=== PATIENT | male | born 1995 | race Caucasian/White ===

== ENCOUNTER 2022-07-09 08:14 | Emergency (ER) | payer SELFPAY ==
--- NOTE | 2022-07-09 08:24 | ED.URI ---
HPI - URI/Sore Throat General Chief Complaint: Upper Respiratory Infection Stated Complaint: Runny Nose,Congestion,Sore Throat Time Seen by Provider: 07/09/22 08:33 Source: patient and RN notes reviewed Mode of arrival: ambulatory Limitations: no limitations History of Present Illness HPI Narrative: 27-year-old male presents with concern for 1 day history of runny nose, nasal congestion, body aches, general malaise. He reports he tried multi symptom cold medicine yesterday without relief. He reports a secondhand exposure to COVID. He denies nausea, vomiting, diarrhea, shortness of breath MD elicited complaint: rhinorrhea and nasal congestion Related Data Allergies Allergy/AdvReac Type Severity Reaction Status Date / Time amoxicillin Allergy Unknown Unknown Unverified 07/09/22 08:33 Review of Systems Review of Systems: CONSTITUTIONAL: Reports malaise, chills, sweats EYES: Denies visual changes, redness, or discharge. ENT: Reports rhinorrhea, congestion, sore throat. Denies sinus pain, otalgia CARDIOVASCULAR: Denies chest pain, palpitations, or edema. RESPIRATORY: Denies cough. Denies dyspnea. GASTROINTESTINAL: Denies abdominal pain, nausea, vomiting, diarrhea SKIN: Denies rash or itching. MUSCULOSKELETAL: Reports myalgia. NEUROLOGIC: Denies headache. All systems reviewed & are unremarkable except as noted in HPI and below PMFSH Comments At time of signature, agree with nursing past medical, surgical, social and family history. There is no relevant family history pertinent to the presenting complaint Exam Narrative: GENERAL: Well-appearing, well-nourished, and in no acute distress. HEAD: Normocephalic EYES: PERRLA, conjunctivae clear ENT: Nares clear, turbinates edematous and erythematous, clear discharge. Mucous membranes moist. TM pearly lozada with dull light reflex bilaterally; no tragal tenderness. Oropharynx not erythematous without lesions. Tonsils not enlarged and without exudate, no drooling, no hoarseness, no trismus, uvula midline. NECK: Supple. No lymphadenopathy CHEST: Clear to auscultation, breath sounds equal. No wheezing, rhonchi, rales, or stridor. No respiratory distress, speaks in full sentences. HEART: Regular rate and rhythm. No murmur heard. SKIN: Warm, dry, no rash. NEURO: Alert and oriented x3. PSYCH: Normal mood and affect Course Course Emergency Course: Patient is aware of diagnosis, understands and agrees to treatment plan. Anticipatory guidance given. Patient agrees to follow-up as directed and is aware of reasons to seek care at the emergency department. Portions of this record may have been created with voice recognition software Level of Care: Express Care Visit Vital Signs Vital signs: Reviewed. MDM - URI/Sore Throat MDM Narrative Medical decision making narrative: Differential diagnosis considered: Case virus, strep pharyngitis, allergic rhinitis, upper respiratory tract infection, sinusitis, rhinosinusitis, nasopharyngitis. viral pharyngitis, otitis media, otitis externa, pneumonia, bronchitis, viral cough syndrome, viral syndrome, and influenza. Exam findings show no acute concerns or changes; patient is non-toxic appearing and is in no distress. Patient is appropriate for outpatient treatment and follow-up. Lab Data Attestation: I reviewed the patient's lab results. Critical Care Time Critical Care Time Critical Care Time: No Discharge Plan Discharge Clinical Impression: Upper respiratory infection Patient Disposition: Home, Self-Care Condition: Stable Instructions: Upper Respiratory Infection (ED) Additional Instructions: Your rapid COVID test is negative. You can consider retesting in 1-2 days. Viral illness may last between 7-21 days; antibiotics do not cure viral illness and are NOT recommended at this time. Recommend antihistamine such as Benadryl at night time and Zyrtec or Miriam during the day Also, recommend symptomatic treatment include
[2022-07-09 08:29] VITALS: BP 124/62; PULSE 74; RESP 18; TEMP 36.4; O2SAT 100
== END 2022-07-09 09:00 | disposition home or self-care (01) ==
PROVIDERS: Emergency Provider Nurse Practitioner
DX: J06.9 Acute upper respiratory infection, unspecified (principal); Z20.822 Contact with and (suspected) exposure to COVID-19
CPT/HCPCS: 87426; 99213; C9803; G0463

== ENCOUNTER 2023-04-13 20:13 | Emergency (ER) | payer OTHER, SELFPAY ==
[2023-04-13 20:25] VITALS: BP 124/68; PULSE 80; RESP 20; TEMP 36.6; O2SAT 99
--- NOTE | 2023-04-13 21:29 | ED.GENADULT ---
HPI - General Adult General Chief complaint: Dental/Oral Stated complaint: dental pain, abcess Time Seen by Provider: 04/13/23 21:10 Source: patient Mode of arrival: ambulatory Limitations: no limitations History of Present Illness HPI narrative: This is a 27-year-old male who presents to the ED for chief complaint of right upper dental pain for the past 2 days. Reports he has a known wisdom tooth problem in that area but never followed up with a dentist to have it removed. It had not been bothering him up until a couple days ago. Denies fevers, chills, drainage, swelling. Related Data Allergies Allergy/AdvReac Type Severity Reaction Status Date / Time amoxicillin Allergy Unknown Unknown Verified 04/13/23 20:29 Review of Systems Review of Systems: All systems as dictated in HPI Exam Narrative: GENERAL: Well-appearing, well-nourished, and in no acute distress. HEAD: Normocephalic, atraumatic. EYES: PERRLA and EOMI. ENT: Impacted right upper molar. No discrete abscess or fluid collection. Nares clear, no rhinorrhea or epistaxis. Mucous membranes moist. Oropharynx without tonsillar hypertrophy exudate or other lesions. Floor of the mouth intact. NECK: Supple. No adenopathy or masses. CHEST: No respiratory distress. Clear to auscultation. No wheezes rales or rhonchi HEART: Regular rate and rhythm. No murmur heard. Normal peripheral pulses. ABDOMEN: Soft, nontender, nondistended, normal active bowel sounds. MSK: Normal range of motion. No edema. SKIN: Warm, dry, no rash. NEURO: Alert and oriented x3. No focal deficits. PSYCH: Normal mood and affect. Course Vital Signs Vital signs: Vital Signs Temperature 97.8 F 04/13/23 20:25 Pulse Rate 80 04/13/23 20:25 Respiratory Rate 20 04/13/23 20:25 Blood Pressure 124/68 04/13/23 20:25 Pulse Oximetry 99 04/13/23 20:25 Oxygen Delivery Room Air 04/13/23 20:25 Temperature 97.8 F 04/13/23 20:25 Pulse Rate 80 04/13/23 20:25 Respiratory Rate 20 04/13/23 20:25 Blood Pressure 124/68 04/13/23 20:25 Pulse Oximetry 99 04/13/23 20:25 Oxygen Delivery Room Air 04/13/23 20:25 Medical Decision Making MDM Narrative Medical decision making narrative: This is a 27-year-old male who presents to the ED for chief complaint of right upper dental pain for the past couple of days. He has a known impacted wisdom tooth there. Vitals are normal. Exam remarkable for the above. No evidence of any abscess or evidence of deep space infection. Will cover with Augmentin for potential infection. Toradol given here and prescription written as well. He has a dentist he can follow-up with. pt will be discharged in stable condition. Return precautions given and supportive measures discussed. Pt is understanding and agreeable with plan for discharge and follow-up with PCP/dentist Vital Signs Vital Signs: Vital Signs Temperature 97.8 F 04/13/23 20:25 Pulse Rate 80 04/13/23 20:25 Respiratory Rate 20 04/13/23 20:25 Blood Pressure 124/68 04/13/23 20:25 Pulse Oximetry 99 04/13/23 20:25 Oxygen Delivery Room Air 04/13/23 20:25 Temperature 97.8 F 04/13/23 20:25 Pulse Rate 80 04/13/23 20:25 Respiratory Rate 20 04/13/23 20:25 Blood Pressure 124/68 04/13/23 20:25 Pulse Oximetry 99 04/13/23 20:25 Oxygen Delivery Room Air 04/13/23 20:25 Discharge Plan Discharge Clinical Impression: Impacted molar Patient Disposition: Home, Self-Care Condition: Stable Instructions: Antibiotic Form Additional Instructions: Your exam today is reassuring. No severe infection but he should take antibiotics for possible developing infection. Follow-up closely with dentist. If you have any new or worsening symptoms please return to the ER for further evaluation Prescriptions: New ketorolac 10 mg tablet 10 mg PO Q6H 5 Days Qty: 20 0RF clindamycin HCl 300 mg capsule 300 mg PO Q8H 5 Days Qty: 1
[2023-04-13] MEDS: KETOROLAC 30 MG/ML VIAL (*BKC) IM (21:39)
== END 2023-04-13 22:11 | disposition home or self-care (01) ==
PROVIDERS: Emergency Provider Physician Assistant; PCP Family Medicine
DX: K01.1 Impacted teeth (principal)
CPT/HCPCS: 96372; 99283; J1885